=== PATIENT | male | born 1955 | race Caucasian/White ===

== ENCOUNTER 2020-05-03 07:22 | Inpatient (IN) | payer OTHER ==
[~2020-05-03] VITALS: Ht 170.2 cm; Wt 128.8 kg
[2020-05-03 07:53] LABS: MEAN CELL VOLUME 117 fl (80.0-100.0); MEAN CORPUSCULAR HGB CONC 31 g/dl (33.0-37.0); MEAN PLATELET VOLUME 13.6 fl (7.4-10.4); PLATELET COUNT 175 K/mm3 (130-400); REDCELL DISTRIBUTION WIDTH-CV 16.8 % (11.5-14.5)
[2020-05-03 07:57] LABS: HEMATOCRIT 24.5 % (42.0-52.0); HEMOGLOBIN 7.6 g/dl (13.5-18.0); MEAN CORPUSCULAR HEMOGLOBIN 36 pg (27.0-31.0)
[2020-05-03 08:03] LABS: ALANINE AMINOTRANSFERASE 48 U/L (4-49); ALBUMIN 3.6 gm/dL (3.5-5.0); ALKALINE PHOSPHATASE 86 U/L (50-136); ANION GAP 7 mmol/L (7-16); AST,SGOT 61 U/L (15-37); BILIRUBIN,TOTAL 1.2 mg/dL (0.0-1.0); BLOOD UREA NITROGEN 9 mg/dL (9-20); CALCIUM 8.4 mg/dL (8.4-10.2); CARBON DIOXIDE 26 mmol/L (22-30); CHLORIDE 105 mmol/L (98-107); CREATININE, serum 0.88 (0.66-1.25); GLUCOSE 143 mg/dL (74-106); SODIUM 138 mmol/L (137-145); TOTAL PROTEIN 7.6 gm/dL (6.4-8.2)
[2020-05-03] MEDS ORDERED: ANTIVERT 25MG25 MG PO (08:11)
[2020-05-03 08:20] LABS: TROPONIN-I < 0.012 ng/mL (0.000-0.035)
[2020-05-03 08:32] LABS: BAND 9 % (0-10); EOSINOPHIL 1 % (0-4); HYPOCHROMIA 2+; LYMPHOCYTE 61 % (20.0-51.0); NEUTROPHILS 22 % (42.0-75.2); OVALOCYTES 3+; PLATELET ESTIMATE NORMAL (NORMAL)
[2020-05-03 08:33] LABS: SCHISTOCYTES 1+
[2020-05-03] MEDS ORDERED: ZEBETA 5MG5 MG PO (09:06)
[2020-05-03] MEDS ORDERED: FOLIC ACID 11 MG/TA1 PO (09:06)
[2020-05-03] MEDS ORDERED: WELLBUTRIN XL300 M1 PO (09:06)
[2020-05-03] MEDS ORDERED: [UNRECOGNIZED DRUG - CODE] (09:07)
[2020-05-03] MEDS ORDERED: PROTONIX 40MG T40 MG PO (09:07)
[2020-05-03] MEDS ORDERED: LASIX 40MG TABL40 MG PO (14:45)
[2020-05-03 17:58] VITALS: BP 100/37; PULSE 61; TEMP 98
[2020-05-03 18:14] VITALS: BP 96/49; PULSE 64
--- NOTE | 2020-05-03 18:36 | NUR ---
Patient was transferred from ED. admitted for dizziness/weakness/tiredness. wbc 1.9, hgb 7.6. no acute finding on MRI. Patient drowsy, easy to arouse. patient complain of tiredness. BP in the 90's. will continue to monitor pressure.
[2020-05-03 19:43] VITALS: BP 98/45; PULSE 65; TEMP 98
--- NOTE | 2020-05-03 20:30 | NUR ---
Initial shift assessment done- Up to bathroom, steady on feet-- denies vertigo, dizziness. States just feels weak. Tele on. Iv fluids of NS at 75cc/hr- understands to call for assistance up to bathroom. SCD,s on.
[2020-05-03 23:55] VITALS: BP 104/51; PULSE 60; TEMP 97.9
[2020-05-04] VITALS (10 sets, daily range): BP systolic 84–114; BP diastolic 44–63; PULSE 47–65; TEMP 97.3–98.4
--- NOTE | 2020-05-04 05:00 | NUR ---
B/P 97/53- pt states that is low for him- feels weak, resting quietly--using the urinal, emptied 400cc chalino urine. IV fluids of NS at 75cc/hr. States occasional vertigo when he moves his head a certain way.
[2020-05-04 07:16] LABS: MEAN CORPUSCULAR HGB CONC 30 g/dl (33.0-37.0); PLATELET COUNT 136 K/mm3 (130-400); REDCELL DISTRIBUTION WIDTH-CV 17.2 % (11.5-14.5)
[2020-05-04 07:24] LABS: HEMATOCRIT 22.1 % (42.0-52.0); MEAN CORPUSCULAR HEMOGLOBIN 37 pg (27.0-31.0)
[2020-05-04 07:26] LABS: HEMOGLOBIN 6.6 g/dl (13.5-18.0)
[2020-05-04 07:27] LABS: MEAN CELL VOLUME 123 fl (80.0-100.0)
[2020-05-04 07:32] LABS: CALCIUM 7.8 mg/dL (8.4-10.2); CHOLESTEROL RISK RATIO 5.2; CREATININE, serum 0.96 (0.66-1.25); POTASSIUM 3.9 mmol/L (3.4-5.0)
--- NOTE | 2020-05-04 07:58 | NUR ---
CALLED CRITICAL LAB TO FLOYD/MARIANELA CHAVARRIA
--- NOTE | 2020-05-04 09:51 | NUR ---
PT IN BED, DENIES PAIN OR DISCOMFORT, REPORTS LIGHT HEADEDNESS WITH MOVEMENT, PT SOB WITH MOVEMENT IN BED. MEDICATIONS GIVEN, ASSESSMENT PERFORMED, EDUCATED ON BLOOD ADMINISTRATION, NO OTHER NEEDS AT THIS TIME.
[2020-05-04 10:33] LABS: BAND 5 % (0-10); LYMPHOCYTE 84 % (20.0-51.0); METAMYELOCYTE 1 % (0-0); NEUTROPHILS 6 % (42.0-75.2); NUCLEATED RED BLOOD CELL 1 (0-6)
[2020-05-04 10:34] LABS: ANISOCYTOSIS 1+; OVALOCYTES 3+; PLATELET ESTIMATE NORMAL (NORMAL); SCHISTOCYTES 2+
--- NOTE | 2020-05-04 11:10 | NUR ---
ESTELA met with the patient to discuss discharge plan. The patient lives alone in [place]. He states that his son, Sanjay (ph#[phone]), also lives in [place]. He reports independence with ADLs and has a cane. The patient states that he just moved here from [place] and that he has not got [facility] with a [facility] yet in [place]. He states that he would like to get registered at the [facility]. [facility] the [facility] and he reports no difficulties obtaining his meds. ESTELA contacted the [facility]. The office assistant receptionist reports that the patient will need to go through eligibility first, to be able to switch his care to the [facility]. She tranferred ESTELA to eligibility. Romi, with eligibility did not answer. ESTELA left her a voicemail. The patient does not have advanced directives completed, but he was interested in obtaining a form for DPOA-HC. ESTELA provided. Jacque, with PT, informed ESTELA that therapy had some concerns with the patient's mobility and they would tentatively recommend IPR, depending on progress. ESTELA discussed this with the patient. The patient reports that he would be interested in IPR, if the [facility] appro[facility] it. He states that otherwise, he feels safe to return home. ESTELA consulted IPR Director, Monica. ESTELA to continue to follow.
--- NOTE | 2020-05-04 12:01 | NUR ---
pt blood consent signed. went over pt reaction symptoms to blood. pt reports past history of recieving blood and history of having reactions. pt reports having convulsions, n/v, and diharrea with platelets. pt reports having sweating and tachycardia with RBC transfusion. Sonal CHAVARRIA alerted to this. holding on picking up blood for now, will pretreat pt for poss. reaction.
--- NOTE | 2020-05-04 13:08 | NUR ---
BLOOD INFUSION INFUSING. EDUCATED PT ON S/S OF BLOOD REACTION. PT LUNG SOUNDS CTA. PT DROWSY AT THIS TIME. PT REPORTED PREVIOUS BLOOD REACTIONS SO PT PRETREATED WITH BENADRYL AND TYLENOL. STAYED WITH PT DURING FIRST 15MIN. NO OTHER NEEDS AT THIS TIME.
--- NOTE | 2020-05-04 13:19 | NUR ---
PT CONTINUES TO SLEEP, EASILY AROUSED, FLOYD CHAVARRIA INFORMED OF LOW BP'S. NO OTHER NEEDS AT THIS TIME.
--- NOTE | 2020-05-04 15:53 | NUR ---
PT SLEEPING, BLOOD FINISHED INFUSING, PT HAS REPORTED NO S/S OF A REACTION. VITALS STABLE. DENIES PAIN/DISCOMFORT AT THIS TIME. NO OTHER NEEDS.
--- NOTE | 2020-05-04 19:33 | NUR ---
Report received from JORGE Buckley. Pt resting in chair, denies needs at this time.
--- NOTE | 2020-05-04 19:52 | NUR ---
Assessment completed. Pt resting in chair, denies pain or other concerns at this time. Generalized 1+ edema noted. Lung sounds clear, heart rate and rhythm regular, alert & oriented x4. INT to left AC intact and flushes easily.
[2020-05-04 21:01] LABS: HEMATOCRIT 25.2 % (42.0-52.0); HEMOGLOBIN 7.8 g/dl (13.5-18.0)
[2020-05-05 03:36] VITALS: BP 103/56; PULSE 61; TEMP 98.1
--- NOTE | 2020-05-05 05:59 | NUR ---
Pt had uneventful shift. Has slept throughout most of night without complaints. Requested eye drops for burning in eyes, expressed relief after administration of eye drops. Neuro checks every 4 hours without change from pt's baseline.
[2020-05-05 07:25] LABS: MEAN CORPUSCULAR HGB CONC 31 g/dl (33.0-37.0); PLATELET COUNT 141 K/mm3 (130-400); RED BLOOD COUNT 2.05 M/mm3 (4.20-5.60); REDCELL DISTRIBUTION WIDTH-CV 22.6 % (11.5-14.5)
[2020-05-05 07:26] LABS: HEMATOCRIT 23.4 % (42.0-52.0); HEMOGLOBIN 7.3 g/dl (13.5-18.0); MEAN CELL VOLUME 114 fl (80.0-100.0); MEAN CORPUSCULAR HEMOGLOBIN 36 pg (27.0-31.0)
[2020-05-05 07:51] LABS: CALCIUM 8.1 mg/dL (8.4-10.2); CREATININE, serum 0.98 (0.66-1.25); POTASSIUM 3.8 mmol/L (3.4-5.0)
[2020-05-05 08:11] VITALS: BP 116/54; PULSE 66; TEMP 98.7
[2020-05-05 08:15] LABS: EOSINOPHIL 1 % (0-4); LYMPHOCYTE 69 % (20.0-51.0); NEUTROPHILS 20 % (42.0-75.2)
[2020-05-05 08:16] LABS: PLATELET ESTIMATE NORMAL (NORMAL)
[2020-05-05 08:20] LABS: ANISOCYTOSIS 3+; OVALOCYTES 3+
--- NOTE | 2020-05-05 08:20 | NUR ---
REDNESS AT IV SITE W/O PAIN OR TENDERNESS, NOT RAISED OR STREAKING. SOME EDEMA TO L HAND AND BLE. PT REPORTS "DOMINIC NEVER BEEN THIS SWOLLEN". VITALS REVIEWED, MEDICATIONS GIVEN, PT ASSESSMENT PERFORMED. PT USING CPAP FOR SLEEP. PT STILL DROWSY BUT REPORTS SLEEPING BETTER WITH CPAP. PT VICE PRESIDENT FOR INSTRUCTION EQUAL, AOX4, UL CLEAR BB DI. PT VOIDING IN URINAL.
[2020-05-05 08:21] LABS: POIKILOCYTOSIS 2+
[2020-05-05 08:22] LABS: SCHISTOCYTES 1+
[2020-05-05 08:24] LABS: HYPOCHROMIA 2+
--- NOTE | 2020-05-05 09:10 | NUR ---
Several visit attempts; Steel Inspector left card informing patient that spiritual care is available and Steel Inspector offered God's blessings.
--- NOTE | 2020-05-05 09:23 | NUR ---
Romi, [facility] eligibility, reports that the patient is already registered within the [facility] and that SW should just be able to call [phone] ext. [phone] and set him up with an appointment at the [facility]. ESTELA to contact the [facility] and will continue to follow.
[2020-05-05 12:30] VITALS: BP 124/62; PULSE 77; TEMP 98.1
[2020-05-05] MEDS ORDERED: ASPIRIN E.C. 8181 MG PO (13:08)
[2020-05-05] MEDS ORDERED: LIPITOR 40MG TA40 MG PO (13:08)
--- NOTE | 2020-05-05 14:52 | NUR ---
PT/OT are now recommending home for the patient. IPR Director, Monica, reports that no beds are available right now and that the patient is too functional. SW met with the patient to update and review d/c plan. The patient reports that he is doing better with mobility and feels comfortable returning back home. SW attempted to contact the [facility] to set up an appointment. SW left them a voicemail. SW to continue to follow.
--- NOTE | 2020-05-05 16:11 | NUR ---
The nursing unit clerk was able to get in contact with Janine at the [facility]. The nursing unit clerk transferred the call to ESTELA. ESTELA secured the patient a first appointment, via video connect with the [facility] on 05/24 at 1400. The patient reports that he has wifi and would be able to do the appointment by video connect. A labs appointment at the [facility] was scheduled on 05/13 at 1115. ESTELA informed the nursing unit clerk of the appointments. The patient is to discharge back home today, 05/05. No additional needs at this time.
--- NOTE | 2020-05-05 16:41 | NUR ---
pt escorted out via wheelchair, iv removed, pt belongings taken out with pt, discharge paperwork provided, no other needs at this time.
[2020-05-06 07:53] LABS: PATHOLOGY DIFF REVIEW OK +
== END 2020-05-05 16:20 | disposition home or self-care (01) | DRG 149 ==
LOC: COL.ER 07:22 → MEDICAL 11:34
PROVIDERS: Emergency Medicine; Internal Medicine; Physician Assistant; ADMIT Hospitalist
DX: R42 Dizziness and giddiness (principal); I50.30 Unspecified diastolic (congestive) heart failure; E87.70 Fluid overload, unspecified; K21.9 Gastro-esophageal reflux disease without esophagitis; F41.9 Anxiety disorder, unspecified; D46.9 Myelodysplastic syndrome, unspecified; I11.0 Hypertensive heart disease with heart failure; R73.9 Hyperglycemia, unspecified; R05 Cough; Z85.6 Personal history of leukemia; Z90.89 Acquired absence of other organs
CPT/HCPCS: 99232-AI; 99239; G0378; J1200; J2060; J2405; J2550; J7030; J7040; P9040

== ENCOUNTER 2021-10-21 13:06 | Emergency (ER) | payer OTHER ==
[~2021-10-21] VITALS: Ht 170.2 cm; Wt 86.7 kg
[~2021-10-21 13:06] MED LIST: ANTIVERT 25MG25 MG PO; ASPIRIN E.C. 8181 MG PO; FOLIC ACID 11 MG/TA1 PO; LASIX 40MG TABL40 MG PO; LIPITOR 40MG TA40 MG PO; PROTONIX 40MG T40 MG PO; WELLBUTRIN XL300 M1 PO; ZEBETA 5MG5 MG PO; [UNRECOGNIZED DRUG - CODE]
[2021-10-21 13:15] VITALS: TEMP 97.8
[2021-10-21 14:34] VITALS: BP 142/88; PULSE 59
== END 2021-10-21 15:01 | disposition home or self-care (01) ==
LOC: COL.ER 13:06
DX: S02.2XXA Fracture of nasal bones, initial encounter for closed fracture (principal); S00.81XA Abrasion of other part of head, initial encounter; S00.511A Abrasion of lip, initial encounter; W01.198A Fall on same level from slipping, tripping and stumbling with subsequent striking against other object, initial encounter; Y93.01 Activity, walking, marching and hiking; Y92.481 Parking lot as the place of occurrence of the external cause

== ENCOUNTER → 2021-12-06 | Outpatient (CLI) | payer MEDICARE | LOC: ZLAB.STJ 16:06 | DX: N39.0 Urinary tract infection, site not specified (principal) ==

== ENCOUNTER 2021-12-12 13:07 | Emergency (ER) | payer MEDICARE ==
[~2021-12-12] VITALS: Ht 170.2 cm; Wt 74.5 kg
[2021-12-12 13:08] VITALS: TEMP 97.9
[2021-12-12 13:43] LABS: BASO % 0.3 % (0.0-2.0); EOS # 0.1 K/mm3 (0.0-0.7); EOS % 1.6 % (0.0-4.0); GRAN # 4.7 K/mm3 (1.4-6.5); GRAN % 69.4 % (42.2-75.2); HEMATOCRIT 45.4 % (42.0-52.0); HEMOGLOBIN 15.6 g/dl (13.5-18.0); LYMPH # 1.3 K/mm3 (1.2-3.4); MEAN CELL VOLUME 108 fl (80.0-100.0); MEAN CORPUSCULAR HEMOGLOBIN 37 pg (27-31); MEAN CORPUSCULAR HGB CONC 34 g/dl (33.0-37.0); MONO # 0.6 K/mm3 (0.1-0.6); MONO % 9.1 % (1.7-9.3); PLATELET COUNT 112 K/mm3 (130-400); RED BLOOD COUNT 4.19 M/mm3 (4.20-5.60); REDCELL DISTRIBUTION WIDTH-CV 14.1 % (11.5-14.5)
[2021-12-12 13:58] LABS: ALBUMIN 3.7 gm/dL (3.4-4.8); BILIRUBIN,TOTAL 1.1 mg/dL (0.2-1.2); CREATININE, serum 0.85 mg/dL (0.72-1.25); POTASSIUM 3.8 mmol/L (3.5-4.5); TOTAL PROTEIN 7.1 gm/dL (6.2-8.1)
[2021-12-12 16:13] LABS: COLLECTION METHOD CLEAN CATCH
[2021-12-12 16:19] LABS: MUCOUS Present (NOT PRESENT); PH 7 (5-8); SQUAMOUS EPITHELIAL None Seen /hpf (0-10); URINE APPEARANCE Clear (CLEAR/HAZY); URINE BACTERIA None Seen /hpf (NONE SEEN); URINE BILIRUBIN Negative (NEGATIVE); URINE BLOOD Negative (NEGATIVE); URINE COLOR Yellow (YELLOW); URINE GLUCOSE Negative (NEGATIVE); URINE KETONE Negative (NEGATIVE); URINE LEUKOCYTE ESTERASE Negative (NEGATIVE); URINE NITRATE Negative (NEGATIVE); URINE PROTEIN(semi-quant) 1+ (NEGATIVE); URINE RBC 0-2 /hpf (0-2)
[2021-12-12 16:45] VITALS: BP 164/101; PULSE 76
== END 2021-12-12 17:36 | disposition home or self-care (01) ==
LOC: COL.ER 13:07
PROVIDERS: Physician Assistant
DX: S09.90XA Unspecified injury of head, initial encounter (principal); S01.01XA Laceration without foreign body of scalp, initial encounter; R11.2 Nausea with vomiting, unspecified; W19.XXXA Unspecified fall, initial encounter; Y92.129 Unspecified place in nursing home as the place of occurrence of the external cause
CPT/HCPCS: J2405; J7030

== ENCOUNTER → 2022-03-20 | Outpatient (CLI) | payer OTHER, MEDICARE | LOC: COL.RAD 07:09 | DX: K22.70 Barrett's esophagus without dysplasia (principal); K29.70 Gastritis, unspecified, without bleeding; R14.2 Eructation | CPT/HCPCS: A9541 ==